=== PATIENT | female | born 1970 | race Caucasian/White ===

== ENCOUNTER 2020-06-14 08:30 | Outpatient (CLI) | payer BC, SELFPAY ==
[2020-06-14 09:08] LABS: SARS-CoV-2 Ag Negative (Negative)
== END 2020-06-14 08:31 | disposition home or self-care (01) ==
DX: Z20.828 Contact with and (suspected) exposure to other viral communicable diseases (principal)
CPT/HCPCS: 87426

== ENCOUNTER 2020-09-14 12:12 | Outpatient (CLI) | payer BC, SELFPAY ==
[2020-09-14 12:59] LABS: SARS-CoV-2 RNA PCR Negative
== END 2020-09-14 12:13 | disposition home or self-care (01) ==
LOC: CHSLAB 12:14
PROVIDERS: Visit Provider Family Medicine
DX: Z01.818 Encounter for other preprocedural examination (principal); Z20.822 Contact with and (suspected) exposure to COVID-19
CPT/HCPCS: C9803; U0003; U0005